=== PATIENT | female | born 1955 | race African-American/Black ===

== ENCOUNTER → 2017-02-22 | Outpatient (CLI) | payer OTHER ==
--- NOTE | 2017-02-22 17:20 | RAD ---
DATE: 02/22/2017 EXAM: MAMMO LILIAN SCREENING BILATERAL HISTORY: Routine screening COMPARISON: 02/09/2016 The breast parenchyma is heterogeneously dense, which could reduce the sensitivity of mammography. Breast parenchyma level C. FINDINGS: 2-D and 3-D tomosynthesis imaging was performed in CC and MLO projections. There are unchanged smooth lymph node type densities present in the lateral aspects of both breasts. No new or enlarging breast densities are seen. No suspicious microcalcifications are evident. IMPRESSION: Stable mammograms without evidence of malignancy. BI-RADS CATEGORY: 2 BENIGN FINDING(S) RECOMMENDED FOLLOW-UP: 12M 12 MONTH FOLLOW-UP PQRS compliance statement: Patient information was entered into a reminder system with a target due date for the next mammogram. Mammography is a sensitive method for finding small breast cancers, but it does not detect them all and is not a substitute for careful clinical examination. A negative mammogram does not negate a clinically suspicious finding and should not result in delay in biopsying a clinically suspicious abnormality. "Our facility is accredited by the [employer] Mammography [employer]."
== END | disposition home or self-care (01) ==
LOC: KCIC MAMMO 15:35
PROVIDERS: ATTEND Family Medicine
DX: Z12.31 Encounter for screening mammogram for malignant neoplasm of breast (principal)
CPT/HCPCS: 77063; G0202; 77067

== ENCOUNTER → 2020-05-30 | Outpatient (CLI) | payer MEDICARE ==
--- NOTE | 2020-05-30 15:11 | KCIC ---
Bilateral digital screening mammograms with 3-D tomosynthesis: Reason for examination: Routine screening. Comparison is made to previous studies dated between 02/22/2017 and 09/29/2012. Bilateral mammograms in CC and oblique projections were obtained with 2-D imaging and 3-D tomosynthesis imaging on a Siemens Inspiration unit and reviewed on the workstation. Interpretation was made with the benefit of CAD. The skin and nipples show no abnormalities. No abnormal axillary lymph nodes are seen. The breast parenchyma shows scattered fatty and fibroglandular density. (Breast density: Category B.) There appears to be a 1.5 cm nodular density in the 2:00 B position of the left breast located approximately 8.5 cm from the nipple. Further evaluation with ultrasound is recommended. There are no other dominant masses, suspicious calcifications or architectural distortion. Impression: 1.5 cm nodule at the 2:00 B position of the left breast 8.5 cm from the nipple. Recommend further evaluation with ultrasound. BI-RADS Category 0: Incomplete. Needs additional imaging evaluation. "Our facility is accredited by the [employer] Mammography [employer]." This patient's information has been entered into a reminder system for the patient to be notified with the results of her examination and a target date for the next mammogram. Electronically signed by: Lazara Haas MD (05/30/2020 3:08 PM) [email or web address]
--- NOTE | 2020-05-30 16:34 | KCIC ---
EXAM: Dual energy x-ray absorptiometry (DEXA). HISTORY: Menopausal disorder. COMPARISON: None available. TECHNIQUE: Dual energy x-ray absorptiometry of the lumbar spine and left hip was performed. Calculation of bone mineral density based on standard deviations above or below the expected young adult normal value (T-score) was completed. FINDINGS: The average bone mineral density in the 1st through 4th lumbar vertebrae is 0.715 g/cmxcm, corresponding with a T-score of -3.0. The average total bone mineral density in the left hip is 0.681 g/cmxcm, corresponding with a T-score of -2.1. IMPRESSION: Findings are within the range of osteoporosis with relation of the spine and osteopenia with relation to the left hip. Note: Definitions established by the World Health Organization: 1. Normal: T-score is -1.0 or above. 2. Osteopenia: T-score is between -1.0 and -2.5 . 3. Osteoporosis: T-score is -2.5 or below. Electronically signed by: Mandy Baum MD (05/30/2020 4:31 PM) [id number]
== END ==
LOC: KCIC MAMMO 13:27
PROVIDERS: ATTEND Internal Medicine
DX: Z12.31 Encounter for screening mammogram for malignant neoplasm of breast (principal); N64.89 Other specified disorders of breast; M85.88 Other specified disorders of bone density and structure, other site; Z78.0 Asymptomatic menopausal state
CPT/HCPCS: 77063; 77067; 77080

== ENCOUNTER → 2020-06-08 | Outpatient (CLI) | payer MEDICARE ==
--- NOTE | 2020-06-08 12:34 | KCIC ---
Left breast ultrasound: Reason for examination: Nodular density on screening mammogram. Comparison is made to mammographic exam dated 05/30/2020. Ultrasound examination of the left breast was performed in the area of clinical concern and at the axilla. At the 2:00 position 8.5 cm from the nipple, there is a small 8.3 mm hypoechoic circumscribed lesion with an echogenic hilum. This probably represents an intramammary lymph node. No other cystic or solid nodules are seen. There is ductal ectasia in the retroareolar position. No abnormal appearing lymph nodes are seen in the axilla. IMPRESSION: Nodular density at the 2:00 position which probably represents an intramammary lymph node but reevaluation in 6 months with ultrasound is recommended. BI-RADS Category 3: Probably Benign. "Our facility is accredited by the [employer] Mammography [employer]." This patient's information has been entered into a reminder system for the patient to be notified with the results of her examination and a target date for the next mammogram. Electronically signed by: Lazara Haas MD (06/08/2020 12:31 PM) [email or web address]
== END ==
LOC: KCIC US 10:57
PROVIDERS: ATTEND Internal Medicine
DX: N60.42 Mammary duct ectasia of left breast (principal)
CPT/HCPCS: 76641

== ENCOUNTER → 2020-11-22 | Outpatient (CLI) | payer MEDICARE ==
--- NOTE | 2020-11-22 10:17 | KCIC ---
Left breast ultrasound: Reason for examination: Follow-up nodule. Patient received Covid vaccination in the left arm in October . Ultrasound examination of the left breast and axilla was performed. At the 2:00 position 8.5 cm from the nipple, there continues to be a hypoechoic circumscribed lesion with an echogenic hilum. This measures approximately 1.5 cm in greatest dimension which is slightly l arger than on previous exam. This may however be related to recent Covid vaccination. No abnormal kaleb earing lymph nodes are identified in the left axilla. IMPRESSION: Slight increased size of the nodule at the 2:00 position. This may be a lymph node with reactive gunn ge related to her recent Covid vaccination. Recommend reevaluation in 3 months with left breast ultra sound. BI-RADS Category 3: Probably Benign. "Our facility is accredited by the [employer] Mammography [employer]." This patient's information has been entered into a reminder system for the patient to be notified wit h the results of her examination and a target date for the next mammogram. Electronically signed by: Lazara Haas MD (11/22/2020 10:15 AM) [email or web address]
== END ==
LOC: KCIC US 08:09
PROVIDERS: ATTEND Internal Medicine
DX: N63.21 Unspecified lump in the left breast, upper outer quadrant (principal)
CPT/HCPCS: 76641